=== PATIENT | female | born 1990 | race Caucasian/White ===

== ENCOUNTER 2018-04-29 17:23 | Emergency (ER) | payer OTHER ==
[~2018-04-29] VITALS: Ht 185.4 cm; Wt 131.5 kg
== END 2018-04-29 20:49 | disposition home or self-care (01) ==
LOC: ER 17:23
DX: S81.012A Laceration without foreign body, left knee, initial encounter (principal); W45.8XXA Other foreign body or object entering through skin, initial encounter; Y93.89 Activity, other specified; Y92.89 Other specified places as the place of occurrence of the external cause; Y99.8 Other external cause status